=== PATIENT | female | born 1980 | race Caucasian/White ===

== ENCOUNTER 2016-04-11 23:55 | Emergency (ER) | payer SELFPAY ==
[~2016-04-11] VITALS: Ht 165.1 cm; Wt 79.5 kg
[2016-04-12 00:22] VITALS: Ht 165.1 cm; Wt 79.5 kg
== END 2016-04-12 00:26 | disposition left against medical advice (07) ==
LOC: FTE 23:55 → E/R 04-12 00:26
DX: Z53.21 Procedure and treatment not carried out due to patient leaving prior to being seen by health care provider (principal)

== ENCOUNTER 2016-07-16 15:28 | Emergency (ER) | payer MEDICAID ==
[~2016-07-16] VITALS: Ht 165.1 cm; Wt 70.5 kg
[2016-07-16 15:32] VITALS: Ht 165.1 cm; Wt 70.5 kg
[2016-07-16] MEDS ORDERED: LORAZEPAM 1 MG TAB PO ONE (16:00)
[2016-07-16 16:15] LABS: ADD SCAN DIFF NO
[2016-07-16 16:18] LABS: BASOPHILS % 0.4 % (0.0-2.0); EOSINOPHILS # 0.2 10^3/ul (0.0-0.5); EOSINOPHILS % 1.5 % (0.0-7.0); HEMATOCRIT 36.7 % (37.0-47.0); LYMPHOCYTES # 2.9 10^3/ul (0.8-2.9); MEAN CORPUSCULAR HEMOGLOBIN 23.7 pg (29.0-33.0); MEAN CORPUSCULAR VOLUME 78.9 fl (82.0-101.0); MEAN PLATELET VOLUME 9.9 fl (7.4-10.4); MONOCYTE # 0.7 10^3/ul (0.3-0.9); MONOCYTES % 6.6 % (0.0-11.0); NEUTROPHIL # 6.3 10^3/ul (1.6-7.5); NEUTROPHILS % 62.2 % (39.0-77.0); PLATELET COUNT 473 10^3/UL (140-415); RED BLOOD COUNT 4.65 10^6/ul (4.20-5.40); RED CELL DISTRIBUTION WIDTH 16.7 % (11.5-14.5); WHITE BLOOD COUNT 10.1 10^3/ul (4.8-10.8)
[2016-07-16 16:37] LABS: ALANINE AMINOTRANSFERASE 338 IU/L (13-69); ALBUMIN 4.4 g/dl (3.3-4.9); ALBUMIN/GLOBULIN RATIO 1.57; ALKALINE PHOSPHATASE 309 IU/L (42-121); ANION GAP 15 (8-16); ASPARTATE AMINO TRANSFERASE 57 IU/L (15-46); BILIRUBIN,INDIRECT 0.4 mg/dl (0-1.1); BILIRUBIN,TOTAL 0.4 mg/dl (0.2-1.3); BLOOD UREA NITROGEN 11 mg/dl (7-20); CALCIUM 9.2 mg/dl (8.4-10.2); CARBON DIOXIDE 27 mmol/L (21-31); CHLORIDE 100 mmol/L (97-110); CREATININE 0.51 mg/dl (0.44-1.00); POTASSIUM 3.5 mmol/L (3.5-5.1); SODIUM 138 mmol/L (135-144); TOTAL PROTEIN 7.2 g/dl (6.1-8.1)
[2016-07-16 16:39] LABS: ETHANOL < 10.0 mg/dl
[2016-07-16 16:40] LABS: GLUCOSE 419 mg/dl (70-220)
[2016-07-16] MEDS ORDERED: SOD CHLORIDE 0.9% 1,000 ML IV STA (17:05)
--- NOTE | 2016-07-16 17:57 | ERD ---
ER Documentation Chief Complaint Date/Time DATE: 07/16/16 TIME: 17:51 Chief Complaint psychological evaluation HPI 36-year-old female with a history of bipolar disorder that is untreated and polysubstance abuse with recent relapse about 1 week ago brought in by ambulance from a bus stop. Bystanders called ambulance as she appeared confused and distressed. Patient complains of severe anxiety at this time. She is using both methamphetamines and heroin IV. She endorses auditory hallucinations, described as whispers, no suicidal or homicidal ideations. No visual hallucinations. She states that she has had these symptoms without drug use as well in the past. She stopped treatment for her bipolar disorder about 1 year ago. She lives in an apartment downstairs from her mother. She also complains of increased thirst and urination. She has a history of diabetes and hypertension, but is not taking medicines for these. ROS All systems reviewed and are negative except as per history of present illness. Medications Home Meds Reported Medications Buspirone Hcl* (Buspar*) 5 Mg Tab, 15 MG PO TID, TAB 07/16/16 Fluoxetine Hcl* (Prozac*) 20 Mg Capsule, 20 MG PO DAILY, CAP 07/16/16 Aripiprazole* (Abilify*) 30 Mg Tablet, 30 MG PO QHS, #30 TAB 07/16/16 Metformin Hcl* (Metformin Hcl*) 1,000 Mg Tablet, 1000 MG PO QHS, #30 TAB 07/16/16 Glipizide XL* (Glipizide XL*) Unknown Strength Tab.er.24, MG PO BID, TAB 07/16/16 Hydrochlorothiazide* (Hydrochlorothiazide*) 25 Mg Tab, 25 MG PO DAILY, #30 TAB 07/16/16 Atenolol* (Atenolol*) 50 Mg Tablet, 50 MG PO DAILY, #30 TAB 07/16/16 Lisinopril* (Lisinopril*) Unknown Strength Tablet, MG PO DAILY, #30 TAB 07/16/16 Temazepam* (Restoril*) 30 Mg Capsule, 30 MG PO HS Y for INSOMNIA, CAP 07/16/16 Lorazepam* (Lorazepam*) 1 Mg Tablet, 1 MG PO HS Y for ANXIETY, #30 TAB 07/16/16 Allergies Allergies: Coded Allergies: sumatriptan (Verified Allergy, Intermediate, 07/16/16) PMhx/Soc History of Surgery: No Anesthesia Reaction: No Hx Neurological Disorder: No Hx Psychiatric Problems: Yes (BIPOLAR DISORDER) Hx Miscellaneous Medical Probl: Yes (ANXIETY, DIABETES) Hx Alcohol Use: No Hx Substance Use: Yes (METHAMPHETAMINE) Hx Tobacco Use: No Smoking Status: Never smoker FmHx Family History: No coronary disease Physical Exam Vitals Vital Signs Date Time Temp Pulse Resp B/P Pulse Ox O2 Delivery O2 Flow Rate FiO2 07/16/16 22:08 98.6 117 20 194/102 98 07/16/16 20:26 98.3 101 16 189/105 98 Room Air 07/16/16 15:32 98.0 112 18 193/110 98 Physical Exam Const: Very tearful and anxious, nontoxic Head: Atraumatic Eyes: Normal Conjunctiva ENT: No facial trauma, old healing wound to the left lower lip, dry oral mucosa, hoarse voice, normal posterior oropharynx Neck: Full range of motion..~ No meningismus. Resp: Clear to auscultation bilaterally Cardio: Tachycardic with regular rhythm, no murmurs Abd: Soft, non tender, non distended. Normal bowel sounds Skin: No petechiae or rashes Back: No midline or flank tenderness Ext: No cyanosis, or edema Neur: Awake and alert and oriented 3, cranial nerves intact, strength and sensations intact, normal gait Psych: Anxious, appears depressed, poor judgment and insight, positive for auditory hallucinations, no suicidal ideations, homicidal ideations, or visual hallucinations Result Diagram: 07/16/16 1600 07/16/16 1600 Results 24 hrs Laboratory Tests Test 07/16/16 16:00 07/16/16 20:13 07/16/16 21:03 White Blood Count 10.110^3/ul Red Blood Count 4.6510^6/ul Hemoglobin 11.0g/dl Hematocrit 36.7% Mean Corpuscular Volume 78.9fl Mean Corpuscular Hemoglobin 23.7pg Mean Corpuscular Hemoglobin Concent 30.0g/dl Red Cell Distribution Width 16.7% Platelet Count 95448^3/UL Mean Platelet Volume 9.9fl Neutrophils % 62.2% Lymphocytes % 29.0% Monocytes % 6.6% Eosinophils % 1.5% Basophils % 0.4% Nucleated Red Blood Cells % 0.0/100WBC Neutrophils # 6.310^3/ul Lymphocytes # 2.910^3/ul Monocytes # 0.710^3/ul Eosinophils # 0.210^3/ul Basophils # 0.010^3/ul Nucleated Red Blood Cells # 0.010^3/ul Sodium Level 138mmol/L Potassium Level 3.5mmol/L Chloride Level 100mmol/L Carbon Dioxide Level 27mmol/L Anion Gap 15 Blood Urea Nitrogen 11mg/dl Creatinine 0.51mg/dl Glucose Level 419mg/dl Calcium Level 9.2mg/dl Total Bilirubin 0.4mg/dl Direct Bilirubin 0.00mg/dl Indirect Bilirubin 0.4mg/dl Aspartate Amino Transf (AST/SGOT) 57IU/L Alanine Aminotransferase (ALT/SGPT) 338IU/L Alkaline Phosphatase 309IU/L Total Protein 7.2g/dl Albumin 4.4g/dl Globulin 2.80g/dl Albumin/Globulin Ratio 1.57 Ethyl Alcohol Level < 10.0mg/dl Urine Color LT. YELLOW Urine Clarity CLEAR Urine pH 6.0 Urine Specific [place] 1.010 Urine Ketones NEGATIVE Urine Nitrite NEGATIVE Urine Bilirubin NEGATIVE Urine Urobilinogen 1.0 E.U./dL Urine Leukocyte Esterase NEGATIVE Urine Microscopic RBC >50/HPF Urine Microscopic WBC 2-5/HPF Urine Squamous Epithelial Cells FEW Urine Bacteria RARE Urine Hemoglobin 3+ Urine Glucose >=1000% Urine Total Protein NEGATIVE Urine Opiates Screen Negative Urine Barbiturates Negative Urine Amphetamines Screen Positive Urine Benzodiazepines Screen Negative Urine Cocaine Screen Negative Urine Cannabinoids Negative Bedside Glucose 258mg/dL Current Medications Medications (Trade) Dose Ordered Sig/Macie Route PRN Reason Start Time Stop Time Status Last Admin Dose Admin Lorazepam 1 mg 1 mg ONCE ONCE PO 07/16/16 16:00 07/16/16 16:01 DC 07/16/16 16:35 Sodium Chloride (NS) 1,000 ml @ 1,000 mls/hr Q1H STAT IV 07/16/16 17:05 07/16/16 18:04 DC 07/16/16 17:57 Lisinopril 10 mg 10 mg ONCE ONCE PO 07/16/16 20:30 07/16/16 20:31 DC 07/16/16 20:33 Lactated Ringer's (Lr) 1,000 ml @ 1,000 mls/hr Q1H STAT IV 07/16/16 21:01 07/16/16 22:00 DC 07/16/16 21:29 Olanzapine (Zyprexa Zydis) 10 mg ONCE STAT ODT 07/16/16 21:58 07/16/16 21:59 DC 07/16/16 22:14 Procedures/MDM Labs: CMP is notable for hyperglycemia without evidence of acidosis, although there is elevation of liver enzymes and alk phos MDM Patient is presenting with acute psychosis and anxiety attack. Her vitals were notable for hypertension and tachycardia. This is likely an effective drug use in addition to dehydration. IV was placed and IV fluids were started. Ativan 1 mg was given orally with significant improvement of her symptoms. Zyprexa was also given as she continues to complain of hallucinations. Patient is hyperglycemic but does not have any evidence of DKA at this time. Her blood sugar will be treated with IV hydration. Patient states that her transaminitis is chronic for her, unknown reasons. I do not believe the patient is psychiatrically stable for discharge and will need psychiatric evaluation. Dr. goyal with psychiatry evaluated the patient and believes she is a danger to herself and gravely disabled. He recommended inpatient psychiatric hospitalization and Zyprexa. We are awaiting PET team evaluation for 5150. Her blood sugar was rechecked and had improved with IV fluids. She was given lisinopril for her blood pressure. Patient is stable for transfer to an inpatient psychiatric unit. She will need outpatient follow-up for diabetes medications and hypertension medications. Patient's blood pressure was elevated (>120/80) but appears stable without evidence of hypertension emergency or urgency. The patient was counseled about the risks of hypertension and urged to pursue outpatient monitoring and therapy within a week with their primary care physician. Departure Diagnosis: Primary Impression: Anxiety Additional Impressions: Bipolar disorder Active/Remission status: currently active Current bipolar episode type: depressed Current episode severity: unspecified Qualified Code: F31.30 - Bipolar affective disorder, current episode depressed, current episode severity unspecified Hyperglycemia Dehydration Transaminitis Asymptomatic hypertension Condition: Stable RITESH ROMERO MD Jul 16, 2016 17:57
[2016-07-16] MEDS ORDERED: LORA1TAB PO (19:01)
[2016-07-16] MEDS ORDERED: TEMA30CA6 PO (19:01)
[2016-07-16] MEDS ORDERED: LISI-313 PO (19:02)
[2016-07-16] MEDS ORDERED: HYD25 PO (19:03)
[2016-07-16] MEDS ORDERED: ATEN50TA PO (19:03)
[2016-07-16] MEDS ORDERED: GLIP2.5T14 PO (19:04)
[2016-07-16] MEDS ORDERED: METF1000 PO (19:05)
[2016-07-16] MEDS ORDERED: FLUO20CA38 PO (19:06)
[2016-07-16] MEDS ORDERED: ARIP30TA10 PO (19:06)
[2016-07-16] MEDS ORDERED: BUS5 PO (19:07)
[2016-07-16 20:24] LABS: ADD UMIC YES; URINE BILIRUBIN (Dip) NEGATIVE (NEGATIVE); URINE BLOOD (Dip) 3+ (NEGATIVE); URINE COLOR LT. YELLOW (YELLOW); URINE GLUCOSE (Dip) >=1000 % (NEGATIVE); URINE KETONES (Dip) NEGATIVE (NEGATIVE); URINE LEUKOCYTE ESTERASE (Dip) NEGATIVE (NEGATIVE); URINE NITRITE (Dip) NEGATIVE (NEGATIVE); URINE TOTAL PROTEIN (Dip) NEGATIVE (NEGATIVE); URINE UROBILINOGEN (Dip) 1.0 E.U./dL (0.1-1.0)
[2016-07-16] MEDS ORDERED: LISINOPRIL 10 MG TAB PO ONE (20:30)
[2016-07-16 20:43] LABS: CANNABINOIDS Negative (NEGATIVE); OPIATES Negative (NEGATIVE)
[2016-07-16 20:46] LABS: BARBITURATES Negative (NEGATIVE); BENZODIAZEPINES Negative (NEGATIVE); COCAINE Negative (NEGATIVE)
[2016-07-16 20:48] LABS: BACTERIA,URINE RARE; SQUAMOUS EPITHELIAL CELL,UR FEW; URINE RBCS >50 /HPF (0)
[2016-07-16] MEDS ORDERED: LACTATED RINGER'S 1,000 ML IV STA (21:01)
--- NOTE | 2016-07-16 21:30 | PSY ---
Date/Time of Note Date/Time of Note DATE: 07/16/16 TIME: 21:25 Psychiatric Subjective Eval Consent Pt consented to telemedicine: Yes Subjective Evaluation Patient location: emergency Chief Complaint: psychological evaluation Reason for consult: Suicidal ideation History of present illness Pt has a reported history of bipolar disorder and substance abuse. She was found confused and disorganized. She was brought to the ER. Pt seen. She has limited ability to talk. She was restless and had a very low, raspy voices. She did admit to feeling suicidal. She was not able to say much else. She reportedly stopped medications one year ago. She does admit to past psychiatric admissions. She was not able to provide a coherent narrative as to how she came to the ER or her mental health history. Past psychiatric history See above. Hospitalization: yes Family History Unknown Medical history Problems Medical Problems: (1) Anxiety Status: Acute (2) Bipolar disorder Status: Acute (3) Dehydration Status: Acute (4) Hyperglycemia Status: Acute (5) Patient left without being seen Status: Acute (6) Transaminitis Status: Acute Allergies: Coded Allergies: sumatriptan (Verified Allergy, Intermediate, 07/16/16) Substance Abuse Substance abuse history: Yes Social History Level of education: Unknown DPA/Conservatorship: No Occupation/Long-Term: Unknown Psychiatric Objective Eval Mental Status Examination: Appearance: Disheveled Eye Contact: Poor Psychomotor Activity: Agitated Behavior: Agitated Speech: Soft AFFECT: Intense Mood: Other Though Process: Other (DTA given limited speech) Thought Content: Other (Unclear. Appeared to be responding though) Suicidal: Yes Homicidal: No Orientation: x2 Cognition: Drowsy Insight: Severe Judgement: Severe Attention Span: Distractible Laboratory Results Laboratory Tests Test 07/16/16 16:00 07/16/16 20:13 07/16/16 21:03 White Blood Count 10.110^3/ul Red Blood Count 4.6510^6/ul Hemoglobin 11.0g/dl Hematocrit 36.7% Mean Corpuscular Volume 78.9fl Mean Corpuscular Hemoglobin 23.7pg Mean Corpuscular Hemoglobin Concent 30.0g/dl Red Cell Distribution Width 16.7% Platelet Count 70015^3/UL Mean Platelet Volume 9.9fl Neutrophils % 62.2% Lymphocytes % 29.0% Monocytes % 6.6% Eosinophils % 1.5% Basophils % 0.4% Nucleated Red Blood Cells % 0.0/100WBC Neutrophils # 6.310^3/ul Lymphocytes # 2.910^3/ul Monocytes # 0.710^3/ul Eosinophils # 0.210^3/ul Basophils # 0.010^3/ul Nucleated Red Blood Cells # 0.010^3/ul Sodium Level 138mmol/L Potassium Level 3.5mmol/L Chloride Level 100mmol/L Carbon Dioxide Level 27mmol/L Anion Gap 15 Blood Urea Nitrogen 11mg/dl Creatinine 0.51mg/dl Glucose Level 419mg/dl Calcium Level 9.2mg/dl Total Bilirubin 0.4mg/dl Direct Bilirubin 0.00mg/dl Indirect Bilirubin 0.4mg/dl Aspartate Amino Transf (AST/SGOT) 57IU/L Alanine Aminotransferase (ALT/SGPT) 338IU/L Alkaline Phosphatase 309IU/L Total Protein 7.2g/dl Albumin 4.4g/dl Globulin 2.80g/dl Albumin/Globulin Ratio 1.57 Ethyl Alcohol Level < 10.0mg/dl Urine Color LT. YELLOW Urine Clarity CLEAR Urine pH 6.0 Urine Specific [place] 1.010 Urine Ketones NEGATIVE Urine Nitrite NEGATIVE Urine Bilirubin NEGATIVE Urine Urobilinogen 1.0 E.U./dL Urine Leukocyte Esterase NEGATIVE Urine Microscopic RBC >50/HPF Urine Microscopic WBC 2-5/HPF Urine Squamous Epithelial Cells FEW Urine Bacteria RARE Urine Hemoglobin 3+ Urine Glucose >=1000% Urine Total Protein NEGATIVE Urine Opiates Screen Negative Urine Barbiturates Negative Urine Amphetamines Screen Positive Urine Benzodiazepines Screen Negative Urine Cocaine Screen Negative Urine Cannabinoids Negative Bedside Glucose 258mg/dL Assessment and Plan Assessment/Diagnosis [place] I: Unspecified Affective Disorder (History of Bipolar Disorder) Recommendation/Plan Medication Management None currently. Patient was sleeping when first saw her. However, she became agitated during the interview (physically as well). May benefit from Zyprexa 5mg to 10mg PO/IM if is not able to calm back down. Psychotherapy N/A Pt. Caregiver/Family Education N/A Follow-up/Disposition Please transfer to inpatient psychiatry once patient is medically stable. She appears to be a danger to self and gravely disabled. 5150 Recommendation: Prudencio Armstrong TAMIKA QUIROZ Jul 16, 2016 21:30
[2016-07-16] MEDS ORDERED: OLANZAPINE (ODT) 5 MG TAB ODT STA (21:58)
[2016-07-17 01:40] VITALS: BP 166/96; PULSE 106; RESP 16; TEMP 99.2
[2016-07-17] MEDS ORDERED: HYDROCODONE/APAP (5/325) TAB PO ONE (02:00)
--- NOTE | 2016-07-17 04:34 | EN ---
Date/Time of Note Date/Time of Note DATE: 07/17/16 TIME: 04:32 ER Progress Note Observation Note: Time: 4 hours Family Hx: No Hypertension Evaluation: Multiple exams showed improving symptoms and no evidence of psychiatric emergency The patient was evaluated by the PET, who did not think the patient is holdable and recommended discharge She was advised to follow with psychiatrist tomorrow and return if any concern DIYA PEDERSEN MD Jul 17, 2016 04:33
== END 2016-07-17 05:02 | disposition home or self-care (01) ==
LOC: E/R 15:28
DX: F41.9 Anxiety disorder, unspecified (principal); F31.30 Bipolar disorder, current episode depressed, mild or moderate severity, unspecified; E86.0 Dehydration; I10 Essential (primary) hypertension; R74.0 Nonspecific elevation of levels of transaminase and lactic acid dehydrogenase [LDH]; E11.65 Type 2 diabetes mellitus with hyperglycemia; Z79.84 Long term (current) use of oral hypoglycemic drugs
CPT/HCPCS: 80053; 80306; 80307; 81001; 82962; 85025; 96360; J7030; J7120; Z7502; Z7610